=== PATIENT | female | born 1955 | race Hispanic/Latino ===

== ENCOUNTER 2020-04-08 11:44 | Emergency (ER) | payer OTHER ==
[~2020-04-08] VITALS: Ht 157.5 cm; Wt 68.0 kg
--- OUTSIDE RECORDS SUMMARY | 2020-04-08 11:46 | XMS REPORT | Summary of Care ---
Author Author MAURA RAMÍREZ M.D., I Organization Unknown Address Unknown Phone Unavailable Care Team Providers Care Security Checker Name Role Phone KELLY Myrick, ZOEY LITTLE Unavailable Unavailable TIM LOPEZ MD, MIRANDA Unavailable Unavailable KELLY SANCHES ND, ZOEY LITTLE Unavailable Unavailabl e Unavailable Unavailable Functional Status Name Dates Details Functional status health issues are not documented Status: Name Dates Details Cognitive status health issues are not d ocumented Status: Problems Name Dates Details Referred otalgia of left ear (388.72, H9 2.02) Status: Active Varicose veins (454.9, I83.90) Status: Active LASHA positive (795.79, R76.8) Status: Active Lateral epicondylitis of left elbow (726 .32, M77.12) Status: Active Medications Name Dates Details Gabapentin 300 MG Oral Capsule TAKE 1 CAPSULE DAILY R.N. * Start : 05-Dec-2018 Active Meloxicam 15 MG Oral Tablet TAKE 1 TABLET BY MOUTH DAILY NEEDED * Quantity: 90 Refills: 0 R.N. * Start : 05-Dec-2018 Active Diclofenac Sodium 1 % Transdermal Gel Apply 2g to area twice daily as needed for pain * Quantity: 1 Refills: 0 KELLY Myrick, ZOEY LITTLE * Start : 05-Dec-2018 Active 100 GM Tube Allergies and Adverse Reactions Name Dates Details No Known Drug Allergies (Allergy) Status : Active Procedures Procedure Dates Details History of section Completed History of Knee surgery Completed History of Bladder Surgery Completed Immunization Name Dates Details Immunizations not documented Family History Name Dates Details Family history of malignant neoplasm (V1 6.9, Z80.9) Status: Active Name Dates Details No significant family history (V49.89, Z 78.9) Status: Active Name Dates Details No significant family history (V49.89, Z 78.9) Status: Active Social History Name Dates Details - Status: Name Dates Details Never smoker Vital Signs Date Test Result Details [id number] BP Systolic 144 mm[Hg] Status: Comments: Lo cation: RUE; Position: Sitting BP Diastolic 77 mm[Hg] Status: Comments: Lo cation: RUE; Position: Sitting Height 65 in Status: Weight 153 lb Status: Body Mass Index Calculated 25.46 kg/m2 Status: Body Surface Area Calculated 1.77 m2 Status: Temperature 97.5 f Status: Comments: Me thod: Oral Heart Rate 71 /min Status: Results Date Description Value Details [id number] XRAY Elbow 3 views [id number] Elbow 3 views SEE NOTES Comments: EXAM: XR ELBOW 3 VIEWSDATE: 12/05/2018 14:36 CSTINDICATION: - lateral epicondylitis of left elbowCOMPARISON: NoneTECHNIQUE: AP, lateral and oblique radiographs of the elbowLaterality: Left FINDINGS: No acute fracture or malalignment is identified. No joint spacenarrowing, osteophytes, or cysts.There is no excessive joint fluid. No soft tissue abnormality is identified.IMPRESSION: Normal exam of the left elbow.--Read by: Adi Robertson MDDictated Date/time: 12/05/18 16:16Electronically Signed by: Adi Robertson MD 12/05/1915:26FINAL REPORT [id number] [QL] URINALYSIS, COMPLETE W/REFLEX TO C ULTURE COLOR YELLOW (Normal) Range: YELLOW APPEARANCE CLEAR (Normal) Range: CLEAR SPECIFIC GRAVITY 1.012 (Normal) Range: 1.001-1 .035 PH < OR = 5.0 (Normal) Range: 5.0 -8.0 GLUCOSE NEGATIVE (Normal) Range: NEGAT DYLON BILIRUBIN NEGATIVE (Normal) Range: NEGAT DYLON KETONES NEGATIVE (Normal) Range: NEGAT DYLON OCCULT BLOOD TRACE (Abnormal) Range: NEGATI VE PROTEIN NEGATIVE (Normal) Range: NEGAT DYLON NITRITE NEGATIVE (Normal) Range: NEGAT DYLON LEUKOCYTE ESTERASE TRACE (Abnormal) Range: NEG ATIVE WBC 0-5 {/HPF} (Normal) Range: < OR = 5 RBC NONE SEEN {/HPF} (Normal) Range : < OR = 2 SQUAMOUS EPITHELIAL CELLS 0-5 {/HPF} Range: < OR = 5 BACTERIA NONE SEEN {/HPF} (Normal) Range : NONE SEEN HYALINE CAST NONE SEEN {/LPF} (Normal) Range : NONE SEEN REFLEXIVE URINE CULTURE CULTURE INDICATE D - RESULTS TO FOLLOW :03 [[facility]] CBC (INCLUDES DIFF/PLT) WHITE BLOOD CELL COUNT 6.3 {Thousand/u} (Normal ) Range: 3.8-10.8 RED BLOOD CELL COUNT 4.46 {Million/uL} (Normal) Range: 3.80-5.10 HEMAGLOBIN 13.7 g/dl (Normal) Range: 11.7- 15.5 HEMATOCRIT 39.5 % (Normal) Range: 35.0-45. 0 MCV 88.6 fL (Normal) Range: 80.0-10 0.0 MCH 30.7 pg (Normal) Range: 27.0-33 .0 MCHC 34.7 g/dl (Normal) Range: 32.0- 36.0 RDW 12.6 % (Normal) Range: 11.0-15. 0 PLATELET COUNT 226 {Thousand/u} (Normal) Range : 140-400 MPV 10.6 fL (Normal) Range: 7.5-12. 5 ABSOLUTE NEUTROPHILS 2570 {cells/uL} (Normal) R radha: [id number] ABSOLUTE LYMPHOCYTES 3156 {cells/uL} (Normal) R radha: 850-3900 ABSOLUTE MONOCYTES 302 {cells/uL} (Normal) Rang e: 200-950 ABSOLUTE EOSINOPHILS 239 {cells/uL} (Normal) Ra nge: 15-500 ABSOLUTE BASOPHILS 32 {cells/uL} (Normal) Range : 0-200 NEUTROPHILS 40.8 % (Normal) LYMPHOCYTES 50.1 % (Normal) MONOCYTES 4.8 % (Normal) EOSINOPHILS 3.8 % (Normal) BASOPHILS 0.5 % (Normal) :03 [[facility]] DNA (DS) ANTIBODY DNA (DS) ANTIBODY <1 {IU/ml} (Normal) Comments: IU/mL Interpretation < or = 4 Negative 5-9 Indeterminate > or = 10 Positive :03 [] SM AND SM/PHOTOGRAPHIC MACHINE OPERATOR ANTIBODIES SM ANTIBODY <1.0 NEG {AI} (Normal) Range: < 1.0 NEG SM/PHOTOGRAPHIC MACHINE OPERATOR ANTIBODY <1.0 NEG {AI} (Normal) Range: < 1.0 NEG [id number] [[facility]] SJOGRENS ANTIBODIES (SS-A,SS-B) SJOGRENS ANTIBODY (SS-A) <1.0 NEG {AI} (Normal) Range: <1.0 NEG SJOGRENS ANTIBODY (SS-B) <1.0 NEG {AI} (Normal) Range: <1.0 NEG [id number] [QL] COMPLEMENT COMP C3 + C4 COMPLEMENT COMPONENT C3C 114 mg/dl (Normal) Ran ge: 83-193 COMPLEMENT COMPONENT C4C 20 mg/dl (Normal) Rang e: 15-57 [id number] [[facility]] CULTURE, URINE, ROUTINE Comments: REPORT COMMENT:FASTING:NO CULTURE Comments: CULTUR E, URINE, ROUTINE MICRO NUMBER: [id number] TEST STATUS: FINAL SPECIMEN SOURCE: URINE SPECIMEN QUALITY: ADEQUATE RESULT: Multiple organisms present, each less than 10,000 CFU/mL. These organisms, commonly found on external and internal genitalia, are considered to be colonizers. No further testing performed. Plan of Care Name Dates Details Planned Observations Planned Goals not documented Planned Encounters Appointment; ZOEY RAMÍREZ M.D . On: 09-Jan-2019 9:00 Interventions Provided Discussion/Summary* Ms. Artis, * I have enclosed your lab and X-ray results from your visit to the rheumatology clinic. Your labs are normal including normal blood counts. You do not have antibodies more specific for lupus. I suspect the positive LASHA test is not causing any problems for you. It is not related to your elbow pain. Your elbow X-ray is normal. Please call with questions. * Thank you, * Zoey Ramírez MD * Sra. Dudley, * He adjuntado los resultados de bolivar laboratorio y radiografas de bolivar visita a la clnica de reumatologa. Sania laboratorios son normales, incluidos los recuentos sanguneos normales. No tienes anticuerpos ms especficos para el lupus. Sospecho que la prueba LASHA positiva no est causando ningn problema para usted. No est relacionado con el dolor de codo. La radiografa de bolivar codo es normal. Por favor llame con preguntas. * Misbah, * Zoey Ramírez MD Instructions Name Dates Details Instructions not documented Encounters Appointment; CELSO DEWEY M.D. Encounter Diagnosis: Problem not documented On: 01-Jun-2018 13:00 Appointment; MIGEL DANIEL M.D. Encounter Diagnosis: Problem not documented On: 11-Sep-2018 8:15 Appointment; ZOEY RAMÍREZ M.D . Encounter Diagnosis: Problem not documented On: 05-Dec-2018 8:00 Appointment; ZOEY RAMÍREZ M.D . Encounter Diagnosis: Problem not documented On: 05-Dec-2018 13:00
--- OUTSIDE RECORDS SUMMARY | 2020-04-08 11:46 | XMS REPORT | Continuity of Care Document ---
Author Author [facility] Organization [facility] Address [address] [place] [address] Phone Unavailable Care Team Providers Care Rotary Cutter Feeder Name Role Phone ZOEY MENDOZA M.D. Attphys UnavailMIGEL Bradshaw M.D. Attphys Unavailable CELSO DEWEY M.D. Attphys Unavailable Problems Condition Name Condition Details Condition Category Status Onset Date Resolution Date Last Treatment Date Treating Clinician Comments Source Referred otalgia of left ear Referred otalgia of left ear Proble m HL7.CCDAR2 Active [facility] Varicose veins Varicose veins Problem HL7.CCDAR2 Active [facility] LASHA positive LASHA positive Problem HL7.CCDAR2 Active [facility] Lateral epicondylitis of left elbow Lateral epicondylitis of left elbow Problem HL7.CCDAR2 Active [facility] Allergies, Adverse Reactions, Alerts This patient has no known allergies or adverse reactions. Family History Family Member Diagnosis Comments Start Date Stop Date Source natural daughter Family history of malignant neoplasm [facility] Social History Smoking Status Start Date Stop Date Source Never smoker [facility] Medications Ordered Medication Name Filled Medication Name Start Date Stop Da te Current Medication? Ordering Clinician Indication Dosage Frequency Signature (SIG) Comments Components Source Gabapentin 300 MG Oral Capsule Gabapentin 300 MG Oral Capsul e 2018-12-05 00:00:00 Yes R.N. 1 QD TAKE 1 CAPSULE DAILY [facility] Meloxicam 15 MG Oral Tablet Meloxicam 15 MG Oral Tablet 2018-12-05 00:00:00 Yes R.N. TAKE 1 TABLET BY MOUTH DAILY NEEDED [facility] Diclofenac Sodium 1 % Transdermal Gel Diclofenac Sodium 1 % Transdermal Gel 2018-12-05 00:00:00 Yes ZOEY MENDOZA M.D. Apply 2g to area twice daily as needed for pain [facility] Vital Signs Vital Name Observation Time Observation Value Comments Source BP Systolic 2018-12-05 13:12:00 144 mm[Hg] Location: RUE; Positi on: Sitting [facility] BP Diastolic 2018-12-05 13:12:00 77 mm[Hg] Location: RUE; Positi on: Sitting [facility] Height 2018-12-05 13:12:00 65 [in_us] [facility] Weight 2018-12-05 13:12:00 153 [lb_av] [facility] Body Mass Index Calculated 2018-12-05 13:12:00 25.46 kg/m2 [facility] Temperature 2018-12-05 13:12:00 97.5 [degF] Method: Oral [facility] Heart Rate 2018-12-05 13:12:00 71 /min [facility] Procedures Procedure Date / Time Performed Performing Clinician Sourc e [QLH] CBC (INCLUDES DIFF/PLT) 2018-12-05 00:00:00 [facility] [[facility]] SJOGRENS ANTIBODIES (SS-A,SS-B) 2018-12-05 00:00:00 [facility] [Q] SM AND SM/BANQUET FOOD SERVER ANTIBODIES 2018-12-05 00:00:00 [facility] [[facility]] DNA (DS) ANTIBODY 2018-12-05 00:00:00 [facility] [QL] COMPLEMENT COMP C3 + C4 2018-12-05 00:00:00 [facility] [[facility]] URINALYSIS, COMPLETE W/REFLEX TO CULTURE 2018-12-05 00:00: 00 [facility] XRAY Elbow 3 views [id number] 2018-12-05 00:00:00 [facility] of Knee [facility] History of Bladder Surgery [facility] Encounters Start Date/Time End Date/Time Encounter Type Admission Type Attendi [facility] Facility Care Department Encounter ID Source 2019-05-25 20:31:00 2019-05-25 20:31:00 Emergency E [id number] 2018-12-05 13:00:00 2018-12-05 13:00:00 Appointment; ZOEY MENDOZA M.D. GIBSON[facility] M[facility]ATHER[facility] [address] [id number] 2018-12-05 08:00:00 2018-12-05 08:00:00 Appointment; ZOEY MENDOZA M.D. GIBSON, MARY CATHERINE, M.D. [facility] [id number] [facility] 2018-09-11 08:15:00 2018-09-11 08:15:00 Appointment; MIGEL DANIEL M.D. MARTIN, GORDON, M.D. [facility] Cardiothoracic [facility] V[facility] [place] [id number] [facility] 2018-06-01 13:00:00 2018-06-01 13:00:00 Appointment; CELSO DEWEY M.D. BYRD, MICHAEL, M.D. [facility] [id number] [facility] Results Test Description Test Time Test Comments Results Result Comments Source [[facility]] URINALYSIS, COMPLETE W/REFLEX TO CULTURE 2018-12-05 15 :03:00 Test Item COLOR; Normal (test code = 5778-6) YELLOW YELLOW N APPEARANCE (test code = APPEARANCE) CLEAR CLEAR N SPECIFIC GRAVITY; Normal (test code = 2965-2) 1.012 1.001-1. 035 N PH; Normal (test code = 2756-5) < OR = 5.0 5.0-8.0 N GLUCOSE; Normal (test code = 1547-9) NEGATIVE NEGATIVE N BILIRUBIN; Normal (test code = 79163-3) NEGATIVE NEGATIVE N KETONES; Normal (test code = 95260-9) NEGATIVE NEGATIVE N OCCULT BLOOD; Abnormal (test code = 58663-8) TRACE NEGATIVE A PROTEIN; Normal (test code = 55259-8) NEGATIVE NEGATIVE N NITRITE (test code = NITRITE) NEGATIVE NEGATIVE N LEUKOCYTE ESTERASE (test code = LEUKOCYTE ESTERASE) TRACE NE GATIVE A WBC; Normal (test code = 6690-2) 0-5 < OR = 5 N RBC; Normal (test code = 789-8) NONE SEEN < OR = 2 N SQUAMOUS EPITHELIAL CELLS (test code = 10999-3) 0-5 < OR = 5 BACTERIA; Normal (test code = 630-4) NONE SEEN NONE SEEN N HYALINE CAST; Normal (test code = 32130-8) NONE SEEN NONE SEEN N REFLEXIVE URINE CULTURE (test code = REFLEXIVE URINE C ULTURE) CULTURE INDICATED - RESULTS TO FOLLOW [facility]] CBC (INCLUDES DIFF/PLT)2018-12-05 15:03:00* Test Item Value Reference Range Interpretation Comments WHITE BLOOD CELL COUNT (test code = WHITE BLOOD CELL COUNT) 6.3 {Thousand/u} 3.8-10.8 N RED BLOOD CELL COUNT (test code = RED BLOOD CELL COUNT) 4.46 {Million/uL} 3.80-5.10 N HEMAGLOBIN; Normal (test code = 63951-1) 13.7 g/dl 11.7-15.5 N HEMATOCRIT; Normal (test code = 4544-3) 39.5 % 35.0-45.0 N MCV; Normal (test code = 787-2) 88.6 fL 80.0-100.0 N MCHC; Normal (test code = 67106-0) 34.7 g/dl 32.0-36.0 N RDW; Normal (test code = 788-0) 12.6 % 11.0-15.0 N PLATELET COUNT; Normal (test code = 777-3) 226 {Thousand/u} 140-400 N MPV; Normal (test code = 09249-8) 10.6 fL 7.5-12.5 N ABSOLUTE NEUTROPHILS (test code = ABSOLUTE NEUTROPHILS) 2570 {cells/uL} 2382-0822 N ABSOLUTE LYMPHOCYTES (test code = ABSOLUTE LYMPHOCYTES) 3156 {cells/uL} 850-3900 N ABSOLUTE MONOCYTES (test code = ABSOLUTE MONOCYTES) 302 {cells/uL} 200-950 N ABSOLUTE EOSINOPHILS (test code = ABSOLUTE EOSINOPHILS) 239 {cells/ uL} 15-500 N ABSOLUTE BASOPHILS (test code = ABSOLUTE BASOPHILS) 32 {cells/uL} 0 -200 N NEUTROPHILS (test code = NEUTROPHILS) 40.8 % N LYMPHOCYTES (test code = LYMPHOCYTES) 50.1 % N MONOCYTES; Normal (test code = 05643-5) 4.8 % N EOSINOPHILS; Normal (test code = 96326-3) 3.8 % N BASOPHILS; Normal (test code = 72224-1) 0.5 % N [facility]] DNA (DS) [id number] 15:03:00* Test Item Value Reference Range Interpretation Comments DNA (DS) ANTIBODY (test code = DNA (DS) ANTIBODY) <1 N IU/mL Interpretation < or = 4 Negative 5-9 Indeterminate > or = 10 Positive [facility][Q] SM AND SM/BANQUET FOOD SERVER [id number] 15:03:00* Test Item Value Reference Range Interpretation Comments SM ANTIBODY (test code = SM ANTIBODY) <1.0 NEG <1.0 NEG N SM/BANQUET FOOD SERVER ANTIBODY (test code = SM/BANQUET FOOD SERVER ANTIBODY) <1.0 NEG <1.0 NEG N [facility]] SJOGRENS ANTIBODIES (SS-A,SS-B)2018-12-05 15:03:00* Test Item Value Reference Range Interpretation Comments SJOGRENS ANTIBODY (SS-A) (test code = SJOGRENS ANTIBODY (SS- A)) <1.0 NEG <1.0 NEG N SJOGRENS ANTIBODY (SS-B) (test code = SJOGRENS ANTIBODY (SS- B)) <1.0 NEG <1.0 NEG N [facility][] COMPLEMENT COMP C3 + [id number] 15:03:00* Test Item Value Reference Range Interpretation Comments COMPLEMENT COMPONENT C3C (test code = COMPLEMENT COMPONENT C 3C) 114 mg/dl 83-193 N COMPLEMENT COMPONENT C4C (test code = COMPLEMENT COMPONENT C4C) 20 mg/dl 15-57 N [facility]] CULTURE, URINE, [id number] 15:03:00* Test Item Value Reference Range Interpretation Comments CULTURE (test code = CULTURE) See Comment CULTURE, URINE, ROUTINE MICRO NUMBER: [id number] TEST STATUS: FINAL SPECIMEN SOURCE: URINE SPECIMEN QUALITY: ADEQUATE RESULT: Multiple organisms present, each less than 10,000 CFU/mL. These organisms, commonly found on external and internal genitalia, are considered to be colonizers. No further testing performed. [facility] 3 views [id number] 14:36:00EXAM: XR ELBOW 3 VIEWSDATE: 12/05/2018 14:36 CSTINDICATION: - lateral epicondylitis of left elbowCOMPARISON: NoneTECHNIQUE: AP, lateral and oblique radiographs of the elbowLaterality: LeftFINDINGS: No acute fracture or malalignment is susanne ntified. No joint spacenarrowing, osteophytes, or cysts.There is no excessive tulio int fluid. No soft tissue abnormality is identified.IMPRESSION: Normal exam of the left elbow.--Read by: Adi Robertson MDDictated Date/time: 16:16Electronically Signed by: Adi Robertson MD 6:26FINAL REPORTUnSt. George Regional Hospital
[2020-04-08] MEDS ORDERED: IBUPROFEN 600 MG TAB PO STA (12:02)
[2020-04-08] MEDS ORDERED: HYDROCODONE/APAP 5MG-325MG TAB PO ONE ×2 (12:15→15:15)
--- NOTE | 2020-04-08 13:22 | Diagnostic Imaging Report ---
EXAMINATION: WRIST COMPLETE LEFT INDICATION: Trauma COMPARISON: None FINDINGS: Acute displaced impacted comminuted fracture of the distal radius with approximately one shaft width dorsal displacement of the dominant distal fracture fragment. Intra-articular communication with the radiocarpal joint. Diffuse left wrist soft tissue swelling. IMPRESSION: Acute displaced impacted left distal radius fracture as above. Signed by: Farhad Austin MD on 04/08/2020 1:19 PM
--- NOTE | 2020-04-08 16:55 | NUR ---
ORTHO CART AT BEDSIDE FOR PT; LIDO, MARICAIN, SYRINGES, NEEDLES, WEIGHTS, POLE, YOUNG WRAPS, COTTON WRAP
--- NOTE | 2020-04-08 16:59 | Emergency Department Note ---
History of Present Illnes History of Present Illness Chief Complaint: Extremity Trauma/Pain History of Present Illness This is a 65 year old female HERE FOR LEFT WRIST, FELL AND EXTENDED ARM OUT TO BREAK HER FALL AND HAS OBVIOUS DEFORMITY TO LEFT WRIST. Historian: Patient Arrival Mode: Car Facilities Clerk Required: No Onset (how long ago): hour(s) Location: LEFT WRIST Quality: PAIN Radiation: non-radiation Severity: moderate Onset quality: sudden Timing of current episode: constant Progression: unchanged Chronicity: new Context: recent illness Relieving factors: none Exacerbating factors: none Associated symptoms: denies other symptoms Treatments prior to arrival: none Past Medical/Family History Physician Review I have reviewed the patient's past medical and family history. Any updates have been documented here. Past Medical History Recent Fever: No Clinical Suspicion of Infectio: No New/Unexplained Change in Ment: No Past Medical History: GERD Past Surgical History: Knee Replacement Social History Smoking Cessation: Never Smoker Counseling Performed: No Alcohol Use: None Any Illegal Drug Use: No TB Exposure/Symptoms: No Physically hurt or threatened: No Other Any Pre-Existing Lines (PICC,: No Review of Systems Review of Systems Constitutional: no symptoms EENTM: no symptoms Cardiovascular: no symptoms Respiratory: no symptoms Gastrointestinal: no symptoms Genitourinary: no symptoms Musculoskeletal: joint pain (LEFT WRIST) Neurological: no symptoms Psychological: no symptoms Endocrine: no symptoms Hematological/Lymphatic: no symptoms Review of other systems All other systems reviewed and negative. Physical Exam Related Data Allergies: Coded Allergies: No Known Allergies (Unverified , 04/08/20) Triage Vital Signs Vital Signs Date Time Temp Pulse Resp B/P (MAP) Pulse Ox O2 Delivery O2 Flow Rate FiO2 04/08/20 12:00 97.5 78 16 98 Physical Exam CONSTITUTIONAL Constitutional: well-developed, well-nourished HENT HENT: normocephalic, atraumatic, oropharynx clear/moist, nose normal HENT L/R: left ext ear normal, right ext ear normal EYES Eyes: PERRL, conjunctivae normal NECK Neck: ROM normal, other (NO MIDLINE TENDERNESS) PULMONARY Pulmonary: effort normal, breath sounds normal CARDIOVASCULAR Cardiovascular: regular rhythm, heart sounds normal, capillary refill normal, normal rate GASTROINTESTINAL Abdominal: soft, nontender, bowel sounds normal GENITOURINARY Genitourinary: exam deferred SKIN Skin: warm, dry MUSCULOSKELETAL Musculoskeletal: deformity, tenderness, other (LEFT WRIST WITH OBVIOUS DEFORMITY, TENDER, N/V INTACT DISTALLY) NEUROLOGICAL Neurological: alert, oriented x 3, no gross motor or sensory deficits PSYCHOLOGICAL Psychological: mood/affect normal, judgement normal Results Imaging Imaging results reviewed: Yes Impressions EXAMINATION: WRIST COMPLETE LEFT INDICATION: Trauma COMPARISON: None FINDINGS: Acute displaced impacted comminuted fracture of the distal radius with approximately one shaft width dorsal displacement of the dominant distal fracture fragment. Intra-articular communication with the radiocarpal joint. Diffuse left wrist soft tissue swelling. IMPRESSION: Acute displaced impacted left distal radius fracture as above. Signed by: Farhad Austin MD on 04/08/2020 1:19 PM Critical Care Time Subsequent provider I assumed direction of critical care for this patient from another provider of my specialty. Assessment & Plan Last Vital Signs Date Time Temp Pulse Resp B/P (MAP) Pulse Ox O2 Delivery O2 Flow Rate FiO2 04/08/20 16:54 159/77 04/08/20 12:00 97.5 78 16 98 Medications in the ED Acetaminophen/ Hydrocodone Bitart 1 ea ONCE ONCE PO Last administered on 04/08/20at 12:13; Admin Dose 1 EA; Start 04/08/20 at 12:15; Stop 04/08/20 at 12:16; Status DC Ibuprofen 600 mg ONCE STAT PO ; Start 04/08/20 at 12:02; Stop 04/08/20 at 12:07; Status DC Acetaminophen/ Hydrocodone Bitart 1 ea ONCE ONCE PO Last administered on 04/08/20at 15:25; Admin Dose 1 EA; Start 04/08/20 at 15:15; Stop 04/08/20 at 15:16; Status DC JAMES TRIANA MD Apr 08, 2020 16:59
--- NOTE | 2020-04-08 18:08 | Diagnostic Imaging Report ---
WRIST LEFT 2 VIEWS - 3 views HISTORY: Pain COMPARISON: 04/08/2020 at 1256 p.M. hours. FINDINGS: Overlying plaster cast limits soft tissue and bony detail on the lateral view. Interval closed reduction of the previously described comminuted impaction intra-articular fracture of the radial epiphysis, with improvement in alignment, however, some degree of lateral displacement of the distal fracture fragment displacement and overriding remains. IMPRESSION: Interval closed reduction of the previously described comminuted impaction intra-articular fracture of the radial epiphysis with some improvement in alignment as detailed above. Signed by: Dr. Sherri Michel M.D. on 04/08/2020 6:05 PM
--- NOTE | 2020-04-08 19:10 | NUR ---
all care of fracture with casting done by md avilez
--- NOTE | 2020-04-09 01:07 | Consultation ---
DATE OF CONSULTATION: 04/08/2020 CHIEF COMPLAINT: Left wrist pain. CONSULTING PHYSICIAN: Chase Sanabria MD. 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 She presented to the emergency department, she was found to have left wrist displaced distal radius fracture. She denies any numbness or tingling into her fingers. No pain in her elbow or shoulder or anywhere else. Her pain is worsened by any activity or motion. She noted immediate pain and swelling. She had relief with elevation and rest. PAST MEDICAL HISTORY: GERD. PAST SURGICAL HISTORY: Bilateral knee surgery. MEDICATIONS: Medications for reflux. ALLERGIES: NONE. SOCIAL HISTORY: She lives with her . No drugs, tobacco, or alcohol use. REVIEW OF SYSTEMS: Negative for numbness or tingling. Negative for Tinel's. Negative for fevers or chills. PHYSICAL EXAMINATION: GENERAL: Alert and oriented x3, no acute distress, accompanied by . Normal mood and affect. Normal coordination. EXTREMITIES: Right upper extremity demonstrates skin intact. No gross deformities. Intact AIN, PIN, and ulnar nerve motor function. Sensation intact to light touch to median, radial and ulnar nerve distributions. Fingers are warm and well perfused. Evaluation of left upper extremity demonstrates deformities to the left wrist with marked swelling and ecchymosis along the wrist. Intact AIN, PIN, and ulnar nerve motor function. Sensation intact to light touch to median, radial and ulnar nerve distributions. Compartments are soft and compressible. No tenderness to palpation about the elbow or the shoulder. +2 radial pulses. IMAGING: X-rays demonstrated a displaced acute intra-articular distal radius fracture. ASSESSMENT: Left distal radius intra-articular distal radius fracture. PLAN: We discussed with the patient and her that she requires closed reduction and splinting followed likely by surgical treatment. She tolerated this well under hematoma block as described below. A splint was placed. She will put the splint dry and intact. We will see her back in clinic in 2 days to discuss further care. Contact information was given to the patient. PROCEDURE: The patient was identified and a time-out and verbal consent was obtained. A 15 mL of 1% lidocaine and 0.5% Marcaine were given in a hematoma block to the left wrist. After appropriate anesthesia was obtained, the left wrist was then placed into 5 pounds traction and was then hung. A reduction maneuver was then performed and the left distal radius fracture was then reduced. A well padded and well molded sugar-tong splint was then placed. The patient tolerated the procedure well without immediate complications. MD SHERINE Love/TRAVIS /[id number]
== END 2020-04-08 19:11 | disposition home or self-care (01) ==
LOC: ER 11:44
DX: S52.502A Unspecified fracture of the lower end of left radius, initial encounter for closed fracture (principal); W18.30XA Fall on same level, unspecified, initial encounter; K21.9 Gastro-esophageal reflux disease without esophagitis
CPT/HCPCS: 99284